=== PATIENT | male | born 1955 | race African-American/Black ===

== ENCOUNTER 2016-12-17 19:59 | Emergency (ER) | payer OTHER ==
[~2016-12-17] VITALS: Ht 180.3 cm; Wt 89.5 kg
[~2016-12-17 19:59] MED LIST: ASPI-664 PO; ATOR40TA68 PO; CARV25TA97 PO; FURO40TA4 PO; HYDR-3671 PO; LISI40TA9 PO; NAPR-260 PO; NIFE30TA66 PO; OMEP20CA16 PO; SPIR25TA PO; [UNRECOGNIZED DRUG - CODE] TRANSDERM
[2016-12-17 20:17] VITALS: Ht 180.3 cm; Wt 89.5 kg
[2016-12-17] MEDS ORDERED: ACETAMINOPHEN 500 MG TAB PO STA (22:49)
--- NOTE | 2016-12-18 00:30 | RADRPT ---
PROCEDURE: XR Hip. CLINICAL INDICATION: Status post fall. Left hip pain TECHNIQUE: AP and frog lateral views of the left hip were performed. COMPARISON: None. FINDINGS: There is normal mineralization and alignment. No fracture or osseous lesion is identified. The femor al head is normal in contour and the joint space preserved. The soft tissues are unremarkable. . RPTAT:HJJR IMPRESSION: Unremarkable left hip series. Physician Angelo Date Time Electronically viewed and signed by Cliff Friend Physician on 12/18/2016 00:29 JR/
--- NOTE | 2016-12-18 00:36 | ERD ---
ER Documentation Chief Complaint Date/Time DATE: 12/18/16 TIME: 00:35 Chief Complaint PT FELL OFF BED 2 WKS AGO, C/O LEFT HIP PAIN, LIMPING. UNABLE TO STAY AWAKE HPI This is a 61-year-old male who presents to the emergency room for evaluation of left-sided hip pain after falling out of bed 2 weeks ago. The patient states that he has been limping and came to the emergency room for evaluation. The patient denies any other trauma, denies any head injury and presents today for evaluation of pain in his left hip which she describes as achy pain worse with movement ROS All systems reviewed and are negative except as per history of present illness. Medications Home Meds Active Scripts Naproxen* (Naprosyn*) 500 Mg Tablet, 500 MG PO BID Y for PAIN AND/OR INFLAMMATION, #14 TAB Prov:OLIVIA JOEL NP 05/29/15 Furosemide (Lasix) 40 Mg Tab, 40 MG PO DAILY for 28 Days, TAB Prov:RAJEEV BARFIELD MD 03/13/15 Nifedipine* (Procardia XL*) 30 Mg Tabsr, 30 MG PO DAILY for 28 Days, BOTTLE Prov:RAJEEV BARFIELD MD 03/13/15 Hydralazine Hcl* (Hydralazine Hcl*) 25 Mg Tab, 75 MG PO Q6 for 30 Days, TAB Prov:RAJEEV BARFIELD MD 03/13/15 Clonidine Hcl (CATAPRES-TTS 3 PATCH) 1 Patch Patch, 1 PATCH TRANSDERM We@22 for 28 Days, PATCH Prov:RAJEEV BARFIELD MD 03/13/15 Carvedilol* (Coreg*) 25 Mg Tab, 25 MG PO BID for 28 Days, BOTTLE Prov:RAJEEV BARFIELD MD 03/13/15 Reported Medications Spironolactone* (Aldactone*) 25 Mg Tablet, 25 MG PO DAILY, TAB 07/14/14 Atorvastatin* (Atorvastatin*) 40 Mg Tablet, 40 MG PO HS, TAB 07/14/14 Omeprazole* (Omeprazole*) 20 Mg Capsule.dr, 20 MG PO DAILY, CAP 07/14/14 Lisinopril* (Lisinopril*) 40 Mg Tablet, 40 MG PO DAILY, TAB 07/14/14 Aspirin* (Aspirin* EC) 81 Mg Tablet.dr, 81 MG PO DAILY, TAB 06/04/14 Allergies Allergies: Coded Allergies: No Known Allergy (Unverified , 03/12/15) PMhx/Soc History of Surgery: No Anesthesia Reaction: No Hx Neurological Disorder: No Hx Respiratory Disorders: Yes (CHF) Hx Cardiac Disorders: No (CHF, HTN) Hx Psychiatric Problems: No Hx Miscellaneous Medical Probl: Yes (NICOTINE ABUSE, DYSLIPIDEMIA) Hx Alcohol Use: No Hx Substance Use: No Hx Tobacco Use: Yes Smoking Status: Current every day smoker Physical Exam Vitals Vital Signs Date Time Temp Pulse Resp B/P Pulse Ox O2 Delivery O2 Flow Rate FiO2 12/17/16 20:17 98.5 79 18 191/93 97 Physical Exam INITIAL VITAL SIGNS: Reviewed by me GENERAL: The patient is well developed and appropriate for usual state of health in no apparent distress HEENT: Pupils equal, round, and reactive to light. EOMI. There is no scleral icterus. NECK: C-spine is soft and supple, there is no meningismus. There is no cervical lymphadenopathy. LUNGS: Clear to auscultation bilaterally. There are no rales, wheezes or rhonchi. HEART: Regular rate and rhythm, no murmurs, clicks, rubs or gallops. ABDOMEN: Soft, non-tender, non-distended. There are bowel sounds in all four quadrants. No rebound or guarding. EXTREMITIES: There is no peripheral cyanosis or edema. No focal swelling or erythema. NEUROLOGICAL: The patient moves all four extremities with 5/5 strength. Cranial nerves II - XII are intact. Normal gait. Alert and oriented SKIN: There is no apparent rash or petechiae. HEME/LYMPHATIC: There is no evidence of excessive bruising or lymphedema. PSYCHIATRIC: The patient does not appear anxious or depressed. Results 24 hrs Current Medications Medications (Trade) Dose Ordered Sig/Gisel Route PRN Reason Start Time Stop Time Status Last Admin Dose Admin Acetaminophen (Tylenol Tab) 1,000 mg ONCE STAT PO 12/17/16 22:49 12/17/16 22:51 DC 12/17/16 22:55 Procedures/MDM X-ray Hip 2V Interpreted by me: Bones: [No fracture] Joints: [No dislocation] Foreign body: [None] This 61-year-old male presents to the ER for evaluation of left-sided hip pain. When I evaluated him the patient was not externally rotated, he was not shortened. The patient did have an x-ray which does not reveal any fracture. The patient was given Tylenol in the emergency room and will be discharged home at this time with a prescription for Tylenol and hip contusion instructions. Smoking Cessation Therapy: Pt. was lectured for greater than 3 minutes on the health risks of continued smoking and the benefits of cessation. Departure Diagnosis: Primary Impression: Contusion of left hip Additional Impressions: Tobacco abuse Tobacco abuse counseling Condition: Stable MELISSA ROSENBERG DO Dec 18, 2016 00:36
[2016-12-18] MEDS ORDERED: ACET325T33 PO (00:37)
[2016-12-18 01:06] VITALS: BP 168/98; PULSE 82; RESP 18; TEMP 98.2
== END 2016-12-18 01:07 | disposition home or self-care (01) ==
LOC: E/R 19:59
DX: S70.02XA Contusion of left hip, initial encounter (principal); F17.210 Nicotine dependence, cigarettes, uncomplicated; I10 Essential (primary) hypertension; I50.9 Heart failure, unspecified; W06.XXXA Fall from bed, initial encounter; Y92.9 Unspecified place or not applicable; Z71.6 Tobacco abuse counseling; Z79.82 Long term (current) use of aspirin
CPT/HCPCS: 73510; Z7502; Z7610

== ENCOUNTER 2017-01-14 15:09 | Inpatient (IN) | payer OTHER ==
[~2017-01-14] VITALS: Ht 174 cm; Wt 92.7 kg
[~2017-01-14 15:09] MED LIST changes: +ACET325T33 PO
[2017-01-14] MEDS ORDERED: IPRATROPIUM (NEB) 0.5 MG/2.5 ML AMP NEB STA (15:21)
[2017-01-14] MEDS ORDERED: ALBUTEROL 0.083% (NEB) 2.5 MG/3 ML AMP NEB STA (15:21)
[2017-01-14] MEDS ORDERED: METHYLPREDNISOLONE 125 MG INJ IV STA (15:21)
[2017-01-14 15:44] LABS: BASOPHILS % 0.1 % (0.0-2.0); EOSINOPHILS # 0.4 10^3/ul (0.0-0.5); EOSINOPHILS % 5.1 % (0.0-7.0); HEMATOCRIT 45.1 % (42.0-52.0); HEMOGLOBIN 14.2 g/dl (14.0-18.0); LYMPHOCYTES # 1.2 10^3/ul (0.8-2.9); LYMPHOCYTES % 17.3 % (15.0-51.0); MEAN CORPUSCULAR HGB CONC 31.5 g/dl (32.0-37.0); MEAN PLATELET VOLUME 10.6 fl (7.4-10.4); MONOCYTE # 0.8 10^3/ul (0.3-0.9); MONOCYTES % 11.7 % (0.0-11.0); NEUTROPHIL # 4.5 10^3/ul (1.6-7.5); NEUTROPHILS % 65.5 % (39.0-77.0); PLATELET COUNT 239 10^3/UL (140-415); RED CELL DISTRIBUTION WIDTH 14.1 % (11.5-14.5); WHITE BLOOD COUNT 6.9 10^3/ul (4.8-10.8)
[2017-01-14 15:49] LABS: AADO2 Arterial 92.9 mmHg (7.0-24.0); Allen Test ACCEPTAB; Arterial Base Excess 0 mmol/L (-3.0-3); Arterial COHb 4.5 % (0.0-3.0); Arterial Fraction of Oxyhgb 90.6 % (93.0-99.0); Arterial HCO3 26.8 mmol/L (22.0-26.0); Arterial MetHb 0.2 % (0.0-1.5); MODE NASAL CANNULA
[2017-01-14 15:51] LABS: ADD SCAN DIFF NO
[2017-01-14 16:03] LABS: CALCIUM 8.8 mg/dl (8.4-10.2); CREATININE 1.29 mg/dl (0.61-1.24); POTASSIUM 3.9 mmol/L (3.5-5.1)
[2017-01-14 16:14] LABS: TROPONIN-I 0.099 ng/ml (0.00-0.12)
--- NOTE | 2017-01-14 17:02 | RADRPT ---
PROCEDURE: XR Chest. CLINICAL INDICATION: Respiratory distress TECHNIQUE: AP view of the chest was performed. COMPARISON: March 08, 2015 FINDINGS: Mild cardiomegaly and vascular congestion are again noted. No signs of pleural fluid or pneumothorax are seen. The osseous structures and soft tissues are unremarkable. IMPRESSION: Mild cardiomegaly and vascular congestion. Similar to what was seen March 08, 2015. Findings sugg est mild fluid overload. RPTAT: QQ .Beronica Barrett MD, MD Date Time Electronically viewed and signed by .Beronica Barrett MD, MD on 01/14/2017 17:02 .F/
[2017-01-14] MEDS ORDERED: FUROSEMIDE 40 MG INJ IV ONE (17:30)
--- NOTE | 2017-01-14 18:04 | ERA ---
ER Documentation Chief Complaint Date/Time DATE: 01/14/17 TIME: 18:01 Chief Complaint BIB EMS FOR C/O SOB HPI Patient is a 61-year-old male with coronary disease and CHF who presents with shortness of breath. He was brought in by ambulance. Please note the history and physical exam is limited as the patient continues to fall asleep on trying to interview him. The girlfriend says that his sleeping is normal for him with shortness of breath is not. Upon review of old medical records this is the patient's ninth visit to the ER since 2012. I cannot obtain a history otherwise. ROS All systems reviewed and are negative except as per history of present illness. Medications Home Meds Active Scripts Carvedilol* (Coreg*) 25 Mg Tab, 25 MG PO BID for 28 Days, BOTTLE Prov:RAJEEV BARFIELD MD 03/13/15 Reported Medications Atorvastatin* (Atorvastatin*) 40 Mg Tablet, 40 MG PO HS, TAB 07/14/14 Lisinopril* (Lisinopril*) 40 Mg Tablet, 40 MG PO DAILY, TAB 07/14/14 Discontinued Reported Medications Spironolactone* (Aldactone*) 25 Mg Tablet, 25 MG PO DAILY, TAB 07/14/14 Omeprazole* (Omeprazole*) 20 Mg Capsule.dr, 20 MG PO DAILY, CAP 07/14/14 Aspirin* (Aspirin* EC) 81 Mg Tablet.dr, 81 MG PO DAILY, TAB 06/04/14 Discontinued Scripts Acetaminophen* (Tylenol*) 325 Mg Tablet, 1 TAB PO Q6 Y for PAIN AND OR ELEVATED TEMP, #20 TAB Prov:MELISSA ROSENBERG DO 12/18/16 Naproxen* (Naprosyn*) 500 Mg Tablet, 500 MG PO BID Y for PAIN AND/OR INFLAMMATION, #14 TAB Prov:OLIVIA JOEL NP 05/29/15 Furosemide (Lasix) 40 Mg Tab, 40 MG PO DAILY for 28 Days, TAB Prov:RAJEEV BARFIELD MD 03/13/15 Nifedipine* (Procardia XL*) 30 Mg Tabsr, 30 MG PO DAILY for 28 Days, BOTTLE Prov:RAJEEV BARFIELD MD 03/13/15 Hydralazine Hcl* (Hydralazine Hcl*) 25 Mg Tab, 75 MG PO Q6 for 30 Days, TAB Prov:RAJEEV BARFIELD MD 03/13/15 Clonidine Hcl (CATAPRES-TTS 3 PATCH) 1 Patch Patch, 1 PATCH TRANSDERM We@22 for 28 Days, PATCH Prov:RAJEEV BARFIELD MD 03/13/15 Allergies Allergies: Coded Allergies: No Known Allergy (Unverified , 01/14/17) PMhx/Soc History of Surgery: No Anesthesia Reaction: No Hx Neurological Disorder: No Hx Respiratory Disorders: Yes (CHF) Hx Cardiac Disorders: No (CHF, HTN) Hx Psychiatric Problems: No Hx Miscellaneous Medical Probl: Yes (NICOTINE ABUSE, DYSLIPIDEMIA) Hx Alcohol Use: No Hx Substance Use: No Hx Tobacco Use: Yes Smoking Status: Current every day smoker FmHx Unable to obtain Physical Exam Vitals Vital Signs Date Time Temp Pulse Resp B/P Pulse Ox O2 Delivery O2 Flow Rate FiO2 01/14/17 16:05 65 98 28 01/14/17 16:04 61 15 151/108 98 BIPAP 01/14/17 15:23 98.7 67 20 175/103 96 01/14/17 15:23 Nasal Cannula 2 01/14/17 15:18 98.0 70 16 175/100 91 Physical Exam Const: Sleeping Head: Atraumatic Eyes: Normal Conjunctiva ENT: Normal External Ears, Nose and Mouth. Neck: Full range of motion..~ No meningismus. Resp: Decreased breath sounds bilaterally Cardio: Regular rate and rhythm, no murmurs Abd: Soft, non tender, non distended. Normal bowel sounds Skin: No petechiae or rashes Back: No midline or flank tenderness Ext: Bilateral lower extremity pitting edema Neur: Patient awakens to painful stimuli and answers 1 or 2 questions and then falls asleep Result Diagram: 01/14/17 1530 01/14/17 1530 Results 24 hrs Laboratory Tests Test 01/14/17 15:21 01/14/17 15:30 Blood Gas Specimen Source Blood arterial Arterial Blood Date Drawn 01/14/2017 3:40:14 PM Arterial Blood pH (Temp corrected) 7.333 Arterial Blood pCO2 (Temp correct) 51.6mmhg Arterial Blood pO2 (Temp corrected) 82.2mmHG Arterial Blood HCO3 26.8mmol/L Arterial Blood Base Excess 0mmol/L Arterial Blood Oxygen Saturation 95.1mmHG Jg Test ACCEPTAB Arterial Blood Gas Puncture Site Left Radial Arterial Blood Carboxyhemoglobin 4.5% Arterial Blood Methemoglobin 0.2% Blood Gas A-a O2 Differential 92.9mmHg Oxyhemoglobin Percent 90.6% Total Hemoglobin 15.0g/dl Blood Gas Temperature 37.0C Blood Gas Modality NASAL CANNULA FiO2 33.0% Blood Gas Notified Whom Jacinto Blood Gas Notified Time 01/14/2017 3:48:59 PM White Blood Count 6.910^3/ul Red Blood Count 4.9010^6/ul Hemoglobin 14.2g/dl Hematocrit 45.1% Mean Corpuscular Volume 92.0fl Mean Corpuscular Hemoglobin 29.0pg Mean Corpuscular Hemoglobin Concent 31.5g/dl Red Cell Distribution Width 14.1% Platelet Count 45591^3/UL Mean Platelet Volume 10.6fl Neutrophils % 65.5% Lymphocytes % 17.3% Monocytes % 11.7% Eosinophils % 5.1% Basophils % 0.1% Nucleated Red Blood Cells % 0.0/100WBC Neutrophils # 4.510^3/ul Lymphocytes # 1.210^3/ul Monocytes # 0.810^3/ul Eosinophils # 0.410^3/ul Basophils # 0.010^3/ul Nucleated Red Blood Cells # 0.010^3/ul Sodium Level 142mmol/L Potassium Level 3.9mmol/L Chloride Level 101mmol/L Carbon Dioxide Level 27mmol/L Anion Gap 18 Blood Urea Nitrogen 12mg/dl Creatinine 1.29mg/dl Glucose Level 118mg/dl Calcium Level 8.8mg/dl Troponin I 0.099ng/ml Current Medications Medications (Trade) Dose Ordered Sig/Gisel Route PRN Reason Start Time Stop Time Status Last Admin Dose Admin Albuterol (Proventil 0.083% (Neb)) 5 mg ONCE STAT NEB 01/14/17 15:21 01/14/17 15:23 DC 01/14/17 17:30 Ipratropium [place] (Atrovent 0.02% (Neb)) 0.5 mg ONCE STAT NEB 01/14/17 15:21 01/14/17 15:23 DC 01/14/17 17:30 Methylprednisolone Sodium Succinate (Solu-Medrol) 125 mg ONCE STAT IV 01/14/17 15:21 01/14/17 15:23 DC 01/14/17 15:42 Furosemide (Lasix) 40 mg ONCE ONCE IV 01/14/17 17:30 01/14/17 17:31 DC 01/14/17 17:27 Procedures/MDM EKG #1 read by me: Rate/Rhythm: Left bundle branch block with a normal rate Intervals: Normal Impression: Left bundle branch block with negative Sgarbossa criteria EKG #2 read by me: Rate/Rhythm: Left bundle branch block with a normal rate Intervals: Normal Impression: Left bundle branch block with negative Sgarbossa criteria Chest x-ray shows pulmonary edema per radiology. CT scan of the brain is pending at this time. Patient is a 61-year-old male with coronary disease and CHF as well as narcolepsy who presents with shortness of breath. The patient was brought in by ambulance. The patient had an ABG which showed a PCO2 which was elevated at 50. I initially placed the patient on BiPAP therapy because I was concerned about CO2 narcosis but at this point the CO2 does not appear to be that high. His chest x-ray does show pulmonary edema and the positive pressure from the BiPAP will help. I believe patient has an acute congestive heart failure exacerbation as well as shortness of breath. The patient has altered mental status and aspirin, Tylenol, and alcohol levels are pending as well as a urine drug screen. The patient will be admitted to a telemetry bed under the care of Dr. March from the panel team. I doubt pneumothorax, pneumonia, pulmonary embolism, or aortic dissection. Critical Care: Time: 35 minutes excluding all billable procedures. Treatments/Evaluations: Close monitoring and treatment of unstable vital signs, cardiorespiratory, and neurologic status, while maintaining tight balance of fluid, respiratory, and cardiac interventions. Departure Diagnosis: Primary Impression: Acute exacerbation of CHF (congestive heart failure) Qualified Code: I50.9 - Acute on chronic congestive heart failure, unspecified congestive heart failure type Additional Impressions: Shortness of breath Altered mental status Qualified Code: R41.82 - Altered mental status, unspecified altered mental status type Condition: GIOVANA Leonard MD Jan 14, 2017 18:04
--- NOTE | 2017-01-14 18:10 | RADRPT ---
PROCEDURE: CT Brain without contrast. CLINICAL INDICATION: Altered Mental Status TECHNIQUE: A CT of the brain was performed on a [employer] 64-slice CT scanner utilizing axial imaging from the skull base through the vertex without IV contrast. Multiplanar reformatted images were made. Images were reviewed on a PACS workstation. The CTDIvol is 44.6 mGy and the DLP is 720 mGycm. COMPARISON: None FINDINGS: There is no intracranial hemorrhage, mass effect, or midline shift. No extra-axial fluid collection is seen. The ventricles and sulci are normal in size and configuration. Periventricular white frasnisco er hypodensities are nonspecific but likely reflect chronic microvascular ischemic change. Schroeder-whit e matter differentiation is preserved. The visualized paranasal sinuses and osseous structures are g rossly unremarkable. IMPRESSION: 1. No evidence of acute intracranial pathology. 2. Periventricular white matter hypodensities are nonspecific but likely reflect chronic microvascu lar ischemic change. Nilay Duke Physician Date Time Electronically viewed and signed by Nilay Duke Physician on 01/14/2017 18:10 ML/
[2017-01-14] MEDS ORDERED: hydrALAzine 20 MG INJ IV ONE ×2 (18:30→21:30)
[2017-01-14 18:46] LABS: BARBITURATES NEGATIVE (NEGATIVE); BENZODIAZEPINES NEGATIVE (NEGATIVE); CANNABINOIDS NEGATIVE (NEGATIVE); OPIATES NEGATIVE (NEGATIVE)
[2017-01-14 18:47] LABS: COCAINE POSITIVE (NEGATIVE)
--- NOTE | 2017-01-14 18:47 | HP ---
Date/Time of Note Date/Time of Note DATE: 01/14/17 TIME: 18:45 Assessment/Plan VTE Prophylaxis VTE Prophylaxis Intervention: SCD's Assessment/Plan Assessment/Plan 61 yo M with pmhx chronic systolic HF, HTN, obesity, RAZIA, HL presents with SOB and increased somnolence. D/dx includes acute on chronic HF v ACS v other. UDS + for cocaine. PLAN check BNP, check echo check d dimer. If +, consider CTA v VQ scan gentle dieresis. Cr at baseline ACS r/o cont home meds, may need to add additional antihypertensive sp 1 dose of lasix in the ED. Await BNP and UOP response. DVT prophx HPI/ROS Admit Date/Time Admit Date/Time Hx of Present Illness chief complaint: SOB HPI 61 yo M with pmhx RAZIA on CPAP, obesity, HTN, HL, chronic systolic HF presents with 1 day of SOB. Significant other reports pt was in [facility] until today when he' s been SOB. No chest pain. Noted to be quite somnolent in the ED but arousable. Pt started on BiPap PMH/Family/Social Past Medical History chronic heart failure with reduced EF obesity CKD with baseline CR 1.3 RAZIA on CPAP HTN HL Social History lives with significant other discharge summary from 2 yrs ago mentions h/o cocaine abuse Smoking Status: Current every day smoker Exam/Review of Systems Vital Signs Vitals Vital Signs Date Time Temp Pulse Resp B/P Pulse Ox O2 Delivery O2 Flow Rate FiO2 01/14/17 18:24 59 22 196/110 100 BIPAP 01/14/17 17:15 28 01/14/17 15:23 98.7 01/14/17 15:23 2 Exam Exam laying in bed, wearing bipap MMM sleepy but arousable minimal LE edema rrr no mrg lungs clear abd soft no rashes labs reviewed. Cr at baseline. CXR with minimal congestion. ABG largely unremarkable Labs Result Diagram: 01/14/17 1530 01/14/17 1530 Procedures Procedures UDS + for cocaine CHRIS MCMAHAN MD Jan 14, 2017 18:47
[2017-01-14] MEDS ORDERED: NACL 0.9% 3 ML SYG IV SCH (19:00)
[2017-01-14] MEDS ORDERED: HYDROCODONE/APAP (5/325) TAB PO PRN (19:00)
[2017-01-14] MEDS ORDERED: ACETAMINOPHEN 325 MG TAB PO PRN ×2 (19:00→19:30)
[2017-01-14] MEDS ORDERED: ONDANSETRON 4 MG INJ IV PRN (19:30)
[2017-01-14 19:32] LABS: ACETAMINOPHEN < 10.0 ug/ml (10.0-30.0); SALICYLATE < 1.0 mg/dl (5.0-30.0)
[2017-01-14 19:35] LABS: D-DIMER 657.19 ng/ml (<460)
[2017-01-14 19:51] LABS: ETHANOL < 10.0 mg/dl
[2017-01-14 21:58] VITALS: PULSE 95
[2017-01-14 22:00] VITALS: BP 176/91; PULSE 90; RESP 18
[2017-01-14 22:22] LABS: TROPONIN-I 0.088 ng/ml (0.00-0.12)
[2017-01-14] MEDS: ATORVASTATIN 40 MG TAB PO SCH (22:22)
[2017-01-14 22:26] LABS: CK-MB 3.28 ng/ml (0.0-2.4)
[2017-01-14 22:33] VITALS: Ht 174 cm; Wt 92.7 kg
[2017-01-14] MEDS: HEPARIN 5,000 UNIT/0.5 ML VIAL SC SCH (22:51)
[2017-01-14 23:56] VITALS: BP 186/88; RESP 20
[2017-01-15] VITALS (16 sets, daily range): BP systolic 141–187; BP diastolic 81–104; PULSE 57–90; RESP 18–21
[2017-01-15 02:27] LABS: CK-MB 3.16 ng/ml (0.0-2.4); TROPONIN-I 0.087 ng/ml (0.00-0.12)
[2017-01-15] MEDS: HEPARIN 5,000 UNIT/0.5 ML VIAL SC SCH ×2 (06:24→14:49)
[2017-01-15 07:10] LABS: BASOPHILS % 0.1 % (0.0-2.0); EOSINOPHILS % 0.1 % (0.0-7.0); HEMATOCRIT 45.2 % (42.0-52.0); HEMOGLOBIN 14.5 g/dl (14.0-18.0); LYMPHOCYTES # 0.8 10^3/ul (0.8-2.9); LYMPHOCYTES % 9.2 % (15.0-51.0); MEAN CORPUSCULAR HEMOGLOBIN 29.2 pg (29.0-33.0); MEAN CORPUSCULAR HGB CONC 32.1 g/dl (32.0-37.0); MEAN CORPUSCULAR VOLUME 91.1 fl (82.0-101.0); MEAN PLATELET VOLUME 10.9 fl (7.4-10.4); MONOCYTE # 0.8 10^3/ul (0.3-0.9); MONOCYTES % 9.2 % (0.0-11.0); NEUTROPHIL # 7.4 10^3/ul (1.6-7.5); NEUTROPHILS % 81.1 % (39.0-77.0); PLATELET COUNT 241 10^3/UL (140-415); RED BLOOD COUNT 4.96 10^6/ul (4.70-6.10); RED CELL DISTRIBUTION WIDTH 14.1 % (11.5-14.5); WHITE BLOOD COUNT 9.1 10^3/ul (4.8-10.8)
[2017-01-15 07:18] LABS: ADD SCAN DIFF NO
[2017-01-15 07:35] LABS: ALBUMIN 3.6 g/dl (3.3-4.9); ALBUMIN/GLOBULIN RATIO 1.24; BILIRUBIN,INDIRECT 0.4 mg/dl (0-1.1); BILIRUBIN,TOTAL 0.4 mg/dl (0.2-1.3); CALCIUM 9.4 mg/dl (8.4-10.2); CHOL/HDL RATIO 2.7 RATIO; CREATININE 1.39 mg/dl (0.61-1.24); MAGNESIUM 1.8 mg/dl (1.7-2.5); PHOSPHORUS 3.4 mg/dl (2.5-4.9); POTASSIUM 4.5 mmol/L (3.5-5.1); TOTAL PROTEIN 6.5 g/dl (6.1-8.1)
--- NOTE | 2017-01-15 09:19 | RADRPT ---
PROCEDURE: US Lower extremity Venous. CLINICAL INDICATION: elevated dimer TECHNIQUE: Multiple sonographic images of the bilateral lower extremity deep venous system was obt ained utilizing grayscale, color-flow, compressive sonography and doppler imaging with augmentation. The images were reviewed on a PACS workstation. COMPARISON: None. FINDINGS: There is normal compressibility and flow within the bilateral common femoral, deep femoral, superfic ial femoral and popliteal veins. The deep veins the calf were incompletely visualized. IMPRESSION: No sonographic evidence for deep venous thrombosis in the bilateral lower extremities. Physician Tenzin Date Time Electronically viewed and signed by Physician Tenzin on 01/15/2017 09:18 ML/
[2017-01-15 09:41] LABS: CK-MB 2.99 ng/ml (0.0-2.4)
[2017-01-15 09:43] LABS: TROPONIN-I 0.13 ng/ml (0.00-0.12)
[2017-01-15] MEDS: FUROSEMIDE 40 MG TAB PO SCH (10:26)
[2017-01-15] MEDS: LISINOPRIL 20 MG TAB PO SCH (10:26)
--- NOTE | 2017-01-15 13:02 | PN ---
Date/Time of Note Date/Time of Note DATE: 01/15/17 TIME: 13:01 Assessment/Plan VTE Prophylaxis VTE Prophylaxis Intervention: SCD's Lines/Catheters IV [facility]from [facility] [place] [facility] Urinary Cath still in place: No Assessment/Plan Assessment/Plan 61 yo M with pmhx chronic systolic HF, HTN, obesity, RAZIA, HL presents with SOB and increased somnolence. D/dx includes acute on chronic HF v ACS v other. UDS + for cocaine. troponin now mildly positive. D dimer yesterday +. PLAN recheck troponin. If higher, start heparin drip and call cardiology suspect NSTEMI from demand from cocaine use check echo for + dimer, check VQ scan gentle dieresis. Cr at baseline cont home meds, may need to add additional antihypertensive sp 1 dose of lasix in the ED. Await BNP and UOP response. DVT prophx Subjective 24 Hr Interval Summary Free Text/Dictation pt much more awake this AM. States his breathing is almost back to baseline. Regarding his cocaine use, pt states he "quit all that stuff." Last use of cocaine was . Exam/Review of Systems Vital Signs Vitals Vital Signs Date Time Temp Pulse Resp B/P Pulse Ox O2 Delivery O2 Flow Rate FiO2 01/15/17 12:46 74 01/15/17 11:16 2.0 01/15/17 07:13 98.3 19 178/92 93 01/15/17 05:30 Nasal Cannula 01/14/17 21:30 25 Intake and Output 01/14/17 01/14/17 01/15/17 15:00 23:00 07:00 Intake Total 700 ml Output Total 650 ml Balance 50 ml Exam nad, sitting at side of bed no mrg lungs clear abd soft no le edema elevated dimer noted slightly elevated troponin noted LE dopplers neg for DVT Results Result Diagram: 01/15/17 0520 01/15/17 0520 Results 24 hrs Laboratory Tests Test 01/14/17 15:21 01/14/17 15:30 01/14/17 18:00 01/14/17 21:22 Blood Gas Specimen Source Blood arterial Arterial Blood Date Drawn 01/14/2017 3:40:14 PM Arterial Blood pH (Temp corrected) 7.333 L Arterial Blood pCO2 (Temp correct) 51.6 H Arterial Blood pO2 (Temp corrected) 82.2 Arterial Blood HCO3 26.8 H Arterial Blood Base Excess 0 Arterial Blood Oxygen Saturation 95.1 Jg Test ACCEPTAB Arterial Blood Gas Puncture Site Left Radial Arterial Blood Carboxyhemoglobin 4.5 H Arterial Blood Methemoglobin 0.2 Blood Gas A-a O2 Differential 92.9 H Oxyhemoglobin Percent 90.6 L Total Hemoglobin 15.0 Blood Gas Temperature 37.0 Blood Gas Modality NASAL CANNULA FiO2 33.0 Blood Gas Notified Whom M.D. Blood Gas Notified Time 01/14/2017 3:48:59 PM White Blood Count 6.9 # Red Blood Count 4.90 Hemoglobin 14.2 # Hematocrit 45.1 # Mean Corpuscular Volume 92.0 Mean Corpuscular Hemoglobin 29.0 Mean Corpuscular Hemoglobin Concent 31.5 L Red Cell Distribution Width 14.1 # Platelet Count 239 Mean Platelet Volume 10.6 H Neutrophils % 65.5 Lymphocytes % 17.3 Monocytes % 11.7 H Eosinophils % 5.1 Basophils % 0.1 Nucleated Red Blood Cells % 0.0 Neutrophils # 4.5 Lymphocytes # 1.2 Monocytes # 0.8 Eosinophils # 0.4 Basophils # 0.0 Nucleated Red Blood Cells # 0.0 D-Dimer 657.19 H D-Dimer Comment Sodium Level 142 Potassium Level 3.9 Chloride Level 101 Carbon Dioxide Level 27 Anion Gap 18 H Blood Urea Nitrogen 12 Creatinine 1.29 H Glucose Level 118 Calcium Level 8.8 Troponin I 0.099 0.088 B-Type Natriuretic Peptide 1790 H Salicylates Level < 1.0 L Acetaminophen Level < 10.0 L Ethyl Alcohol Level < 10.0 Urine Opiates Screen NEGATIVE Urine Barbiturates NEGATIVE Urine Amphetamines Screen NEGATIVE Urine Benzodiazepines Screen NEGATIVE Urine Cocaine Screen POSITIVE Urine Cannabinoids NEGATIVE Creatine Kinase 115 Creatine Kinase Index 2.9 Creatinine Kinase MB (Mass) 3.28 H Test 01/15/17 01:41 01/15/17 05:20 01/15/17 08:40 Creatine Kinase 117 117 Creatine Kinase Index 2.7 2.6 Creatinine Kinase MB (Mass) 3.16 H 2.99 H Troponin I 0.087 0.130 *H White Blood Count 9.1 # Red Blood Count 4.96 Hemoglobin 14.5 Hematocrit 45.2 Mean Corpuscular Volume 91.1 Mean Corpuscular Hemoglobin 29.2 Mean Corpuscular Hemoglobin Concent 32.1 Red Cell Distribution Width 14.1 Platelet Count 241 Mean Platelet Volume 10.9 H Neutrophils % 81.1 H Lymphocytes % 9.2 L Monocytes % 9.2 Eosinophils % 0.1 Basophils % 0.1 Nucleated Red Blood Cells % 0.0 Neutrophils # 7.4 Lymphocytes # 0.8 Monocytes # 0.8 Eosinophils # 0.0 Basophils # 0.0 Nucleated Red Blood Cells # 0.0 Sodium Level 142 Potassium Level 4.5 Chloride Level 100 Carbon Dioxide Level 28 Anion Gap 19 H Blood Urea Nitrogen 18 Creatinine 1.39 H Glucose Level 104 Hemoglobin A1c 6.5 H Calcium Level 9.4 Phosphorus Level 3.4 Magnesium Level 1.8 Total Bilirubin 0.4 Direct Bilirubin 0.00 Indirect Bilirubin 0.4 Aspartate Amino Transf (AST/SGOT) 21 Alanine Aminotransferase (ALT/SGPT) 20 Alkaline Phosphatase 101 Total Protein 6.5 Albumin 3.6 Globulin 2.90 Albumin/Globulin Ratio 1.24 Triglycerides Level 104 Cholesterol Level 136 LDL Cholesterol, Calculated 65 HDL Cholesterol 50 Cholesterol/HDL Ratio 2.7 Medications Medications Current Medications Atorvastatin Calcium (Lipitor) 40 mg HS PO Last administered on 01/14/17 22:22 ; Admin Dose 40 MG; Start 01/14/17 at 21:00 Carvedilol (Coreg) 25 mg BID PO Last administered on 01/15/17 10:26; Admin Dose 25 MG; Start 01/14/17 at 21:00 Lisinopril (Zestril) 40 mg DAILY PO Last administered on 01/15/17 10:26; Admin Dose 40 MG; Start 01/15/17 at 09:00 Acetaminophen (Tylenol Tab) 650 mg Q6H PRN PO PAIN LEVEL 1-3 OR FEVER; Start at 19:00 Acetaminophen/ Hydrocodone Bitart ([place] (5/325)) 1 tab Q6H PRN PO MODERATE PAIN LEVEL 4-6 Last administered on 01/15/17 00:52; Admin Dose 1 TAB; Start 01/14 at 19:00 Heparin Sodium (Porcine) (Heparin (5000 Units/0.5 ml)) 5,000 unit Q8 SC Last administered on 01/15/17 06:24; Admin Dose 5,000 UNIT; Start 01/14/17 at 22:00 Furosemide (Lasix) 40 mg DAILY PO Last administered on 7/2/17at 10:26; Admin Dose 40 MG; Start 01/15/17 at 10:00 CHRIS MCMAHAN MD Jan 15, 2017 13:02
--- NOTE | 2017-01-15 13:16 | RADRPT ---
PROCEDURE: Nuclear medicine VQ scan CLINICAL INDICATION: Chest pain. Shortness of breath. TECHNIQUE: 1.0 mCi of technetium-99m DTPA was utilized for the ventilation study. 4.0 mCi of tech netium 99m MAA was utilized for the perfusion study. Planar imaging which performed in 8 planes. I mages were reviewed on the high resolution PACS workstation. COMPARISON: Chest x-ray 01/14/2017 FINDINGS: There is normal and homogeneous uptake throughout the lungs on the ventilation and perfusion scan. No matched or mismatched defects are identified. There is no evidence for pulmonary embolism. IMPRESSION: 1. Low probability VQ scan. RPTAT: HMJB .Leland Zamudio MD, Date Time Electronically viewed and signed by .Leland Zamudio MD, MD on 01/15/2017 13:15 .B/
[2017-01-15 16:51] LABS: CK-MB 3.48 ng/ml (0.0-2.4); TROPONIN-I 0.158 ng/ml (0.00-0.12)
[2017-01-15] MEDS ORDERED: HEPARIN 25000 UNITS/250 ML 250 ML IV SCH (18:00)
[2017-01-15] MEDS ORDERED: HEPARIN 1000 UNITS/ML 10 ML INJ IV ONE (18:00)
[2017-01-15] MEDS ORDERED: HEPARIN 1000 UNITS/ML 10 ML INJ IV PRN (18:00)
[2017-01-15] MEDS: HEPARIN 25000 UNITS/250 ML 250 ML IV SCH (18:44)
[2017-01-15 18:46] LABS: BASOPHILS % 0.1 % (0.0-2.0); EOSINOPHILS # 0.2 10^3/ul (0.0-0.5); EOSINOPHILS % 1.8 % (0.0-7.0); HEMOGLOBIN 14.1 g/dl (14.0-18.0); LYMPHOCYTES # 1.8 10^3/ul (0.8-2.9); MEAN CORPUSCULAR HEMOGLOBIN 29.7 pg (29.0-33.0); MEAN CORPUSCULAR HGB CONC 32.8 g/dl (32.0-37.0); MEAN CORPUSCULAR VOLUME 90.7 fl (82.0-101.0); MEAN PLATELET VOLUME 10.8 fl (7.4-10.4); MONOCYTES % 9.3 % (0.0-11.0); NEUTROPHIL # 7.7 10^3/ul (1.6-7.5); NEUTROPHILS % 71.3 % (39.0-77.0); PLATELET COUNT 219 10^3/UL (140-415); RED BLOOD COUNT 4.74 10^6/ul (4.70-6.10); RED CELL DISTRIBUTION WIDTH 13.9 % (11.5-14.5); WHITE BLOOD COUNT 10.8 10^3/ul (4.8-10.8)
[2017-01-15 18:51] LABS: ADD SCAN DIFF NO
[2017-01-15 19:01] LABS: INR 0.94; PARTIAL THROMBOPLASTIN TIME 29.2 Sec (25.0-35.0); PROTIME 12.6 Sec (12.2-14.2)
[2017-01-15 19:21] LABS: CK-MB 3.55 ng/ml (0.0-2.4); TROPONIN-I 0.169 ng/ml (0.00-0.12)
[2017-01-15] MEDS: ATORVASTATIN 40 MG TAB PO SCH (20:59)
[2017-01-15] MEDS: hydrALAzine 20 MG INJ IV PRN (20:59)
[2017-01-16] VITALS (15 sets, daily range): BP systolic 141–197; BP diastolic 54–99; PULSE 60–78; RESP 18–22
[2017-01-16 01:32] LABS: INR 0.93; PROTIME 12.5 Sec (12.2-14.2)
[2017-01-16 01:33] LABS: PARTIAL THROMBOPLASTIN TIME 50.3 Sec (25.0-35.0)
[2017-01-16 02:09] LABS: CK-MB 3.33 ng/ml (0.0-2.4); TROPONIN-I 0.16 ng/ml (0.00-0.12)
[2017-01-16] MEDS: HEPARIN 25000 UNITS/250 ML 250 ML IV SCH (03:17)
[2017-01-16] MEDS: hydrALAzine 20 MG INJ IV PRN (03:42)
[2017-01-16 07:06] LABS: CK-MB 3.04 ng/ml (0.0-2.4); TROPONIN-I 0.18 ng/ml (0.00-0.12)
[2017-01-16] MEDS: FUROSEMIDE 40 MG TAB PO SCH (09:58)
[2017-01-16] MEDS: LISINOPRIL 20 MG TAB PO SCH (09:59)
--- NOTE | 2017-01-16 11:22 | PN ---
Date/Time of Note Date/Time of Note DATE: 01/16/17 TIME: 11:21 Assessment/Plan VTE Prophylaxis VTE Prophylaxis Intervention: SCD's Lines/Catheters IV C[facility]ter Type (from [facility]): Peripheral IV Urinary Cath still in place: No Assessment/Plan Assessment/Plan 61 yo M with pmhx chronic systolic HF, HTN, obesity, RAZIA, HL presents with SOB and increased somnolence. D/dx includes acute on chronic HF v ACS v other. UDS + for cocaine. troponin now mildly positive. D dimer+ PLAN #NSTEMI: heparin drip started, cardiology to see today suspect demand from cocaine use TTE complete, awaiting read cont statin, BP control--->adding CCB #DM2 based on a1c 6.5: RD eval #elevated dimer: VQ scan today dispo pending cardiology eval Subjective 24 Hr Interval Summary Free Text/Dictation Pt denies any further chest pain. Wants to know when he can go home. Exam/Review of Systems Vital Signs Vitals Vital Signs Date Time Temp Pulse Resp B/P Pulse Ox O2 Delivery O2 Flow Rate FiO2 01/16/17 11:14 97.4 86 20 147/95 99 01/16/17 04:37 28 01/16/17 04:15 Nasal Cannula 2.0 Intake and Output 01/15/17 01/15/17 01/16/17 14:59 22:59 06:59 Intake Total 700 ml 1028 ml Output Total 800 ml 1100 ml Balance -100 ml -72 ml Results Result Diagram: 01/15/17 1824 01/15/17 0520 Results 24 hrs Laboratory Tests Test 01/15/17 15:50 01/15/17 18:24 01/16/17 00:42 01/16/17 05:50 Creatine Kinase 119 116 98 83 Creatine Kinase Index 2.9 3.1 3.4 3.7 Creatinine Kinase MB (Mass) 3.48 H 3.55 H 3.33 H 3.04 H Troponin I 0.158 *H 0.169 *H 0.160 *H 0.180 *H White Blood Count 10.8 Red Blood Count 4.74 Hemoglobin 14.1 Hematocrit 43.0 Mean Corpuscular Volume 90.7 Mean Corpuscular Hemoglobin 29.7 Mean Corpuscular Hemoglobin Concent 32.8 Red Cell Distribution Width 13.9 Platelet Count 219 Mean Platelet Volume 10.8 H Neutrophils % 71.3 Lymphocytes % 17.0 Monocytes % 9.3 Eosinophils % 1.8 Basophils % 0.1 Nucleated Red Blood Cells % 0.0 Neutrophils # 7.7 H Lymphocytes # 1.8 Monocytes # 1.0 H Eosinophils # 0.2 Basophils # 0.0 Nucleated Red Blood Cells # 0.0 Prothrombin Time 12.6 12.5 Prothrombin Time Ratio 1.0 1.0 INR International Normalized Ratio 0.94 0.93 Activated Partial Thromboplast Time 29.2 50.3 H 53.2 H Medications Medications Current Medications Atorvastatin Calcium (Lipitor) 40 mg HS PO Last administered on 01/15/17 20:59 ; Admin Dose 40 MG; Start 01/14/17 at 21:00 Carvedilol (Coreg) 25 mg BID PO Last administered on 01/16/17 10:00; Admin Dose 25 MG; Start 01/14/17 at 21:00 Lisinopril (Zestril) 40 mg DAILY PO Last administered on 01/16/17 09:59; Admin Dose 40 MG; Start 01/15/17 at 09:00 Acetaminophen (Tylenol Tab) 650 mg Q6H PRN PO PAIN LEVEL 1-3 OR FEVER; Start at 19:00 Acetaminophen/ Hydrocodone Bitart ([place] (5/325)) 1 tab Q6H PRN PO MODERATE PAIN LEVEL 4-6 Last administered on 01/15/17 00:52; Admin Dose 1 TAB; Start 01/14 at 19:00 Furosemide (Lasix) 40 mg DAILY PO Last administered on 01/16/17 09:58; Admin Dose 40 MG; Start 01/15/17 at 10:00 Hydralazine HCl (Apresoline) 10 mg Q6H PRN IV ELEVATED BLOOD PRESSURE Last administered on 01/16/17 03:42; Admin Dose 10 MG; Start 01/15/17 at 21:00 CHRIS MCMAHAN MD Jan 16, 2017 11:22
[2017-01-16] MEDS ORDERED: ASPIRIN (EC) 81 MG TAB PO ONE (11:30)
[2017-01-16] MEDS ORDERED: AMLODIPINE 10 MG TAB PO ONE (11:30)
[2017-01-16 12:18] LABS: CREATININE 1.5 mg/dl (0.61-1.24); POTASSIUM 3.7 mmol/L (3.5-5.1)
--- NOTE | 2017-01-16 16:42 | RADRPT ---
Echocardiogram Report Patient Name: KACEY NUNES Gender: Male Date: 1955 Study Date: 16-Jan-2017 Batch Dumper: [facility] Location: 523 Ref. Physician: CHRIS MCMAHAN Quality: Adequate Procedures: Transthoracic echocardiogram with complete 2D, M-Mode, and doppler examination. Indications: SOB, H/O CHF with reduced EF. 2D/M Mode Doppler Measurement Value Normal Ranges Measurement Value Normal Ranges LVIDd 2D 5.0 3.5 - 5.6 cm AV Peak Juan [place] 1.5 m/sec LVIDs 2D 3.8 2.1 - 4.1 cm AV Peak PG 9.0 mmHg FS 2D 23.6 % LVOT Peak [place] 1.3 m/sec LVPWd 2D 1.5 0.6 - 1.1 cm LVOT Peak PG 7.0 mmHg IVSd 2D 1.5 0.6 - 1.1 cm MV E Peak [place] 0.7 m/sec IVS/LVPW 2D 1.0 MV A Peak Juan [place] 0.6 m/sec AoR Diam 2D 3.2 2.0 - 3.7 cm MV E/A 1.0 LA/Ao 2D 1 0 - 1 MV Decel Time 208 msec EDV 2D 128.0 cm3 MV E/A 1.0 ESV 2D 57.1 cm3 TR Peak Juan Carlos 2.4 m/sec LA Dimen 2D 4.3 2.3 - 4.0 cm TR Peak PG 23.0 mmHg RVSP 26.0 mmHg Findings Left Ventricle: Normal left ventricular systolic function. Moderate concentric left ventricular hypertrophy. Ejection fraction is visually estimated at 50 %. Abnormal Diastolic Function. Right Ventricle: Normal right ventricular size. Normal right ventricular systolic function. Left Atrium: There is mild enlargement of left atrium. Right Atrium: The right atrium is normal in size. Mitral Valve: Mitral valve leaflets appear mildly thickened. Mild mitral annular calcification. Trace mitral regurgitation. Aortic Valve: Normal appearance of the aortic valve. No significant aortic stenosis or insufficiency. Tricuspid Valve: Normal appearance of the tricuspid valve. Estimated peak PA systolic pressure 26 mmHg. There is mild tricuspid regurgitation. Pulmonic Valve: Pulmonic valve not well visualized. There is trace pulmonic regurgitation. Pericardium: Normal pericardium with no significant pericardial effusion. Aorta: Normal aortic root. IVC: Normal size and normal respiratory collapse consistent with normal right atrial pressure. Conclusions 1.Normal left ventricular systolic function. Moderate concentric left ventricular hypertrophy. Ejection fraction is visually estimated at 50 %. Abnormal Diastolic Function. 2.There is mild enlargement of left atrium. 3.Mitral valve leaflets appear mildly thickened. Mild mitral annular calcification. Trace mitral regurgitation. 4.Normal appearance of the aortic valve. No significant aortic stenosis or insufficiency. 5.Normal appearance of the tricuspid valve. Estimated peak PA systolic pressure 26 mmHg. There is mild tricuspid regurgitation. 6.Normal size and normal respiratory collapse consistent with normal right atrial pressure. Electronically Signed By: Judd Calvert 16-Jan-2017 16:41:56 -0700 Patient Name: KACEY NUNES Study Date: 16-Jan-2017 [id number]
--- NOTE | 2017-01-16 17:40 | CONS ---
Date/Time of Note Date/Time of Note DATE: 01/16/17 TIME: 17:32 Assessment/Plan Assessment/Plan Additional Assessment/Plan 1. Mildly abnormal troponin: Probably false positive troponin given the fact that patient has multiple episodes previously with slight elevation of troponin. Becoming medical therapy at this point. 2. Hypertensive heart disease 3. Smoker 4. Cocaine use 5. Acute kidney disease and chronic kidney disease. 6. Obstructive sleep apnea. I will discontinue Lasix given his acute renal failure. I will stop the heparin. Patient has not been compliant with the blood draw anyway We will continue with the Coreg twice daily. According to his caregiver he has not been taking more than once a day. I do recommend at least outpatient stress test to the patient. Patient said he will follow with [facility]. She will sign out AMA. Thank you for this referral will continue to follow along with you. Consultation Date/Type/Reason Admit Date/Time Date of Consultation: Jan 16, 2017 Reason for Consultation + trop. Hx of Present Illness This is a 61-year-old -[place] gentleman with history of cardiomyopathy cocaine use and hypertension who presented with increasing shortness of breath. Discussed with the staff old chart was extensively reviewed. Discussed with his significant other who also is his caregiver. Patient patient's one day prior to arrival he became short of breath. His troponin has been mildly elevated for which I was kindly asked to evaluate and treat. He denies any chest pain pressure to me. View of the ultrasound showed the patient has multiple admissions in 2013 2014 at this time he also had a troponin. Previous workup including stress test did not show any significant ischemia. However it showed cardiomyopathy. Patient said he follows up with [facility]. I would appear that he is not taking his medication on a regular basis. He still smokes. And he uses cocaine last use was only a few days ago. Patient also has obstructive sleep apnea and intermittent encephalopathy and hypoxemia. At this point patient has been refusing a lot of blood draws. He wants to sign out AMA. Medication was reviewed Social history as above patient smokes actively. Uses drugs including cocaine. Family history: Denies any history of coronary artery disease. Allergies no drug allergies. Review of system as above mentioned only. Patient denies all others. Social History Smoking Status: Current every day smoker Exam/Review of Systems Vital Signs Vitals Vital Signs Date Time Temp Pulse Resp B/P Pulse Ox O2 Delivery O2 Flow Rate FiO2 7/3/17 16:24 65 01/16/17 15:37 98.0 19 155/89 97 01/16/17 04:37 28 01/16/17 04:15 Nasal Cannula 2.0 Intake and Output 01/15/17 01/15/17 01/16/17 15:00 23:00 07:00 Intake Total 700 ml 1028 ml Output Total 800 ml 1100 ml Balance -100 ml -72 ml Exam General: no acute distress, obese. HEENT: NC/AT. pupils are equal. round. NECK: NO JVD. no stridor. CV: RRR. systolic murmur; no gallop or rubs. PULM: no wheezing or rhonchi. GI: SOFT, NT, ND, no rebound or guarding Extremity: trace B/L LE edema. no clubbing. neuro: awake and alert, OX3. Psych: calm and pleasant rectal: deferred : normal ECG NSR. ECHO reviewed. see my report in computer Results Result Diagram: 01/15/17 1824 01/16/17 0550 Results 24 hrs Laboratory Tests Test 01/15/17 18:24 01/16/17 00:42 01/16/17 05:50 White Blood Count 10.8 Red Blood Count 4.74 Hemoglobin 14.1 Hematocrit 43.0 Mean Corpuscular Volume 90.7 Mean Corpuscular Hemoglobin 29.7 Mean Corpuscular Hemoglobin Concent 32.8 Red Cell Distribution Width 13.9 Platelet Count 219 Mean Platelet Volume 10.8 H Neutrophils % 71.3 Lymphocytes % 17.0 Monocytes % 9.3 Eosinophils % 1.8 Basophils % 0.1 Nucleated Red Blood Cells % 0.0 Neutrophils # 7.7 H Lymphocytes # 1.8 Monocytes # 1.0 H Eosinophils # 0.2 Basophils # 0.0 Nucleated Red Blood Cells # 0.0 Prothrombin Time 12.6 12.5 Prothrombin Time Ratio 1.0 1.0 INR International Normalized Ratio 0.94 0.93 Activated Partial Thromboplast Time 29.2 50.3 H 53.2 H Creatine Kinase 116 98 83 Creatine Kinase Index 3.1 3.4 3.7 Creatinine Kinase MB (Mass) 3.55 H 3.33 H 3.04 H Troponin I 0.169 *H 0.160 *H 0.180 *H Sodium Level 141 Potassium Level 3.7 Chloride Level 100 Carbon Dioxide Level 27 Anion Gap 18 H Blood Urea Nitrogen 18 Creatinine 1.50 H Glucose Level 137 Hemoglobin A1c 6.5 H Calcium Level 9.0 Medications Medications Current Medications Atorvastatin Calcium (Lipitor) 40 mg HS PO Last administered on 01/15/17 20:59 ; Admin Dose 40 MG; Start 01/14/17 at 21:00 Carvedilol (Coreg) 25 mg BID PO Last administered on 01/16/17 10:00; Admin Dose 25 MG; Start 01/14/17 at 21:00 Lisinopril (Zestril) 40 mg DAILY PO Last administered on 01/16/17 09:59; Admin Dose 40 MG; Start 01/15/17 at 09:00 Acetaminophen (Tylenol Tab) 650 mg Q6H PRN PO PAIN LEVEL 1-3 OR FEVER; Start at 19:00 Acetaminophen/ Hydrocodone Bitart ([place] (5/325)) 1 tab Q6H PRN PO MODERATE PAIN LEVEL 4-6 Last administered on 01/15/17 00:52; Admin Dose 1 TAB; Start 01/14 at 19:00 Furosemide (Lasix) 40 mg DAILY PO Last administered on 01/16/17 09:58; Admin Dose 40 MG; Start 01/15/17 at 10:00 Amlodipine Besylate (Norvasc) 10 mg DAILY PO ; Start 01/17/17 at 09:00 Aspirin (Halfprin) 81 mg DAILY PO ; Start 01/17/17 at 09:00 MIGDALIA SERRANO MD Jan 16, 2017 17:40
[2017-01-16] MEDS: ATORVASTATIN 40 MG TAB PO SCH (20:43)
--- NOTE | 2017-01-16 20:59 | RADRPT ---
Vent Rate: 69 bpm RR Interval: 0 msec OR Interval: 158 msec QRS Duration: 148 msec QT Interval: 444 msec QTC Interval: 475 msec P-R-T [place]: 72 - -74 - 102 degrees Normal sinus rhythm Right bundle branch block Left anterior fascicular block Bifascicular block Left ventricular hypertrophy with repolarization abnormality Anterior infarct , age undetermined Abnormal ECG Electronically Signed By: Jackson Barraza [id number]
[2017-01-17] VITALS (8 sets, daily range): BP systolic 139–185; BP diastolic 85–100; PULSE 59–72; RESP 18–20
[2017-01-17 06:13] LABS: ADD SCAN DIFF NO
[2017-01-17 06:18] LABS: BASOPHILS % 0.4 % (0.0-2.0); EOSINOPHILS # 0.3 10^3/ul (0.0-0.5); EOSINOPHILS % 4.5 % (0.0-7.0); HEMOGLOBIN 15.1 g/dl (14.0-18.0); LYMPHOCYTES # 1.8 10^3/ul (0.8-2.9); LYMPHOCYTES % 24.3 % (15.0-51.0); MEAN CORPUSCULAR HEMOGLOBIN 29.7 pg (29.0-33.0); MEAN CORPUSCULAR HGB CONC 32.8 g/dl (32.0-37.0); MEAN CORPUSCULAR VOLUME 90.6 fl (82.0-101.0); MEAN PLATELET VOLUME 10.7 fl (7.4-10.4); MONOCYTES % 12.8 % (0.0-11.0); NEUTROPHIL # 4.3 10^3/ul (1.6-7.5); NEUTROPHILS % 57.5 % (39.0-77.0); PLATELET COUNT 257 10^3/UL (140-415); RED BLOOD COUNT 5.08 10^6/ul (4.70-6.10); RED CELL DISTRIBUTION WIDTH 14.1 % (11.5-14.5); WHITE BLOOD COUNT 7.5 10^3/ul (4.8-10.8)
[2017-01-17 06:53] LABS: ALBUMIN 3.8 g/dl (3.3-4.9); ALBUMIN/GLOBULIN RATIO 1.22; BILIRUBIN,INDIRECT 0.1 mg/dl (0-1.1); BILIRUBIN,TOTAL 0.1 mg/dl (0.2-1.3); CALCIUM 9.2 mg/dl (8.4-10.2); CHOL/HDL RATIO 3.3 RATIO; CREATININE 1.34 mg/dl (0.61-1.24); MAGNESIUM 1.9 mg/dl (1.7-2.5); POTASSIUM 3.9 mmol/L (3.5-5.1); TOTAL PROTEIN 6.9 g/dl (6.1-8.1)
[2017-01-17 07:09] LABS: THYROID STIMULATING HORMONE 2.06 MIU/L (0.465-4.680)
[2017-01-17 08:16] LABS: CK-MB 2.1 ng/ml (0.0-2.4); TROPONIN-I 0.168 ng/ml (0.00-0.12)
[2017-01-17] MEDS: FUROSEMIDE 40 MG TAB PO SCH (08:23)
[2017-01-17] MEDS: LISINOPRIL 20 MG TAB PO SCH (08:23)
[2017-01-17] MEDS ORDERED: AMLODIPINE 10 MG TAB PO SCH (09:00)
[2017-01-17] MEDS ORDERED: ASPIRIN (EC) 81 MG TAB PO SCH (09:00)
[2017-01-17] MEDS ORDERED: hydrALAzine 20 MG INJ IV PRN (11:30)
--- NOTE | 2017-01-17 11:31 | PDOCDIS ---
Discharge Instructions DIAGNOSIS Discharge Diagnosis Diastolic heart failure. Falsely elevated troponins. Noncompliance. CONDITION Patient Condition: Stable HOME CARE INSTRUCTIONS: Special Diet: Carb control OTHER ORDERS: Other Orders: 1. Take medications as per prescription. 2. Follow a low-cholesterol, carbohydrate controlled diet. 3. Resume activities as tolerated. 4. Avoid using recreational drugs. [facility]. [facility] KELLIE ARIZA NP Jan 17, 2017 11:31
[2017-01-17] MEDS ORDERED: ASPI-664 PO (11:34)
[2017-01-17] MEDS ORDERED: AMLO-147 PO (11:34)
[2017-01-17] MEDS ORDERED: HYDR-3671 PO (11:34)
--- NOTE | 2017-01-17 12:08 | DS ---
Date/Time of Note Date/Time of Note DATE: 01/17/17 TIME: 12:01 Discharge Summary Admission/Discharge Info Admit Date/Time Jan 14, 2017 at 19:27 Discharge Date/Time Discharge Diagnosis 1. Acute on chronic diastolic heart failure. 2. Non-ST elevation myocardial infarction. Possibly type II event. 3. Acute metabolic encephalopathy. Resolved. 4. Essential hypertension. 5. Acute on chronic kidney injury. 6. Obstructive sleep apnea. 7. Hyperlipidemia. 8. Substance abuse. 9. Medical noncompliance. 10. Prediabetes. 11. Obesity. Patient Condition: Stable Consults 1. Judd Calvert MD, Cardiology. Procedures Bilateral Lower Extremity Venous Doppler Study IMPRESSION: No sonographic evidence for deep venous thrombosis in the bilateral lower extremities. Nuclear Medicine Lung VQ Scan IMPRESSION: 1. Low probability VQ scan. Brain CT IMPRESSION: 1. No evidence of acute intracranial pathology. 2. Periventricular white matter hypodensities are nonspecific but likely reflect chronic microvascular ischemic change. 2D Echocardiogram Conclusions 1. Normal left ventricular systolic function. Moderate concentric left ventricular hypertrophy. Ejection fraction is visually estimated at 50 %. Abnormal Diastolic Function. 2. There is mild enlargement of left atrium. 3. Mitral valve leaflets appear mildly thickened. Mild mitral annular calcification. Trace mitral regurgitation. 4. Normal appearance of the aortic valve. No significant aortic stenosis or insufficiency. 5. Normal appearance of the tricuspid valve. Estimated peak PA systolic pressure 26 mmHg. There is mild tricuspid regurgitation. 6. Normal size and normal respiratory collapse consistent with normal right atrial pressure. Hx of Present Illness Chief complaint: SOB HPI This is a 61-year-old -[place] gentleman with history of cardiomyopathy cocaine use and hypertension who presented with increasing shortness of breath. One day prior to arrival he became short of breath. The patient has multiple hospitalizations in 2013 2014 at this time he also had a troponin. Previous workup including stress test did not show any significant ischemia. However, it showed cardiomyopathy. Patient usually follows up with [facility]. It appears that the patient was not taking his medication on a regular basis. He still smokes. And he uses cocaine last use was only a few days ago. Patient also has obstructive sleep apnea and intermittent encephalopathy and hypoxemia. Hospital Course The patient was very lethargic in the emergency room. The patient was maintained on noninvasive positive pressure ventilation. The patient's chest x- ray showed mild cardiomegaly and vascular congestion. The patient was also noticed to be in acute renal failure with a creatinine of 1.29. The patient's BNP was 1790. Patient was admitted to inpatient setting. Serial troponins were ordered. A 2D echocardiogram was ordered. The patient's 4th set of troponins were elevated. Hence a cardiology consult was called. The patient was maintained on heparin drip. The patient was refusing blood draws in between. Status post evaluation by cardiology, the sampler radioactive waste recommended that the patient probably has falsely elevated troponins since the patient has multiple episodes of slightly elevated troponins in the past. Cardiology recommended medical management. The patient's 2D echocardiogram showed an ejection fraction of 50% with abnormal diastolic function. The patient was maintained on Lasix for his underlying pulmonary vascular congestion which was then discontinued because of worsening renal function. The patient previously had cardiomyopathy. However, the current 2D echocardiogram showed normal left ventricular systolic function. The patient was noticed to be taking GERALDO inhibitors and beta blockers. The patient's GERALDO inhibitors will be discontinued since the patient has no evidence of any cardiomyopathy and the patient's renal function is getting worse. The patient will be continued on beta blockers for blood pressure control. The patient was also added on calcium channel blockers for blood pressure control. The patient will also be added on hydralazine for optimal blood pressure control. The patient has underlying dyslipidemia. He was maintained on statins for the same. The patient was also started on aspirin. The patient had underlying encephalopathy upon presentation to the ER. The patient underwent a brain CT scan that was negative for any acute intracranial findings. The patient's encephalopathy was concluded to be secondary to toxic metabolic from underlying drug intoxication. Patient's urine drug screen was positive for cocaine. The patient also had elevated D-dimers upon presentation to the hospital. The patient was unable to have a CT angiogram done because of worsening renal function. The patient underwent a lung VQ scan that was showing low probability for pulmonary embolus. The patient also underwent a bilateral lower extremity venous Doppler study that was negative for any underlying DVT. The patient has underlying obstructive sleep apnea. The patient was provided with nocturnal noninvasive positive pressure ventilation. The patient continues to smoke despite his underlying multiple comorbidities. The patient was advised on quitting the use of nicotine and other recreational drugs. The patient has also been noncompliant during the hospital stay with refusal of investigations multiple times. At one point of time, the patient was going to leave the hospital AGAINST MEDICAL ADVICE. As per cardiology, the patient ideally needs outpatient cardiology stress test. [facility] This patient was advised to have a [facility] test [facility]. Cardiology recommended medical management for his elevated troponins and elevated troponins are most likely falsely elevated. The patient had a stable hospital course. The patient is stable to be discharged home. Discharge Instructions 1. Take medications as per prescription. 2. Follow a low-cholesterol, carbohydrate controlled diet. 3. Resume activities as tolerated. 4. Avoid using recreational drugs. 5. [facility]. Patient verbalized understanding of discharge instructions. Case discussed with Dr. Rodriguez. Home Meds Active Scripts Aspirin* (Aspirin* EC) 81 Mg Tablet., 81 MG PO DAILY for 30 Days Prov:KELLIE ARIZA NP 01/17/17 Hydralazine Hcl* (Apresoline*) 25 Mg Tab, 25 MG PO Q8 for 30 Days, #90 TAB Prov:KELLIE ARIZA NP 01/17/17 Amlodipine Besylate* (Amlodipine Besylate*) 10 Mg Tablet, 10 MG PO DAILY for 30 Days, TAB Prov:KELLIE ARIZA NP 01/17/17 Carvedilol* (Coreg*) 25 Mg Tab, 25 MG PO BID for 28 Days, BOTTLE Prov:RAJEEV BARFIELD MD 03/13/15 Reported Medications Atorvastatin* (Atorvastatin*) 40 Mg Tablet, 40 MG PO HS, TAB 07/14/14 Discontinued Reported Medications Lisinopril* (Lisinopril*) 40 Mg Tablet, 40 MG PO DAILY, TAB 07/14/14 Spironolactone* (Aldactone*) 25 Mg Tablet, 25 MG PO DAILY, TAB 07/14/14 Omeprazole* (Omeprazole*) 20 Mg Capsule., 20 MG PO DAILY, CAP 07/14/14 Aspirin* (Aspirin* EC) 81 Mg Tablet., 81 MG PO DAILY, TAB 06/04/14 Discontinued Scripts Acetaminophen* (Tylenol*) 325 Mg Tablet, 1 TAB PO Q6 Y for PAIN AND OR ELEVATED TEMP, #20 TAB Prov:MELISSA ROSENBERG DO 12/18/16 Naproxen* (Naprosyn*) 500 Mg Tablet, 500 MG PO BID Y for PAIN AND/OR INFLAMMATION, #14 TAB Prov:OLIVIA JOEL NP 05/29/15 Furosemide (Lasix) 40 Mg Tab, 40 MG PO DAILY for 28 Days, TAB Prov:RAJEEV BARFIELD MD 03/13/15 Nifedipine* (Procardia XL*) 30 Mg Tabsr, 30 MG PO DAILY for 28 Days, BOTTLE Prov:RAJEEV BARFIELD MD 03/13/15 Hydralazine Hcl* (Hydralazine Hcl*) 25 Mg Tab, 75 MG PO Q6 for 30 Days, TAB Prov:RAJEEV BARFIELD MD 03/13/15 Clonidine Hcl (CATAPRES-TTS 3 PATCH) 1 Patch Patch, 1 PATCH TRANSDERM We@22 for 28 Days, PATCH Prov:RAJEEV BARFIELD MD 03/13/15 Follow-up Plan [facility]. Primary Care Provider Not On Staff Doctor Time spent on discharge: > 30 minutes Pending Labs Laboratory Tests Test 01/17/17 05:47 White Blood Count 7.510^3/ul (4.8-10.8) Red Blood Count 5.0810^6/ul (4.70-6.10) Hemoglobin 15.1g/dl (14.0-18.0) Hematocrit 46.0% (42.0-52.0) Mean Corpuscular Volume 90.6fl (82.0-101.0) Mean Corpuscular Hemoglobin 29.7pg (29.0-33.0) Mean Corpuscular Hemoglobin Concent 32.8g/dl (32.0-37.0) Red Cell Distribution Width 14.1% (11.5-14.5) Platelet Count 67663^3/UL (140-415) Mean Platelet Volume 10.7fl (7.4-10.4) Neutrophils % 57.5% (39.0-77.0) Lymphocytes % 24.3% (15.0-51.0) Monocytes % 12.8% (0.0-11.0) Eosinophils % 4.5% (0.0-7.0) Basophils % 0.4% (0.0-2.0) Nucleated Red Blood Cells % 0.0/100WBC (0.0-0.0) Neutrophils # 4.310^3/ul (1.6-7.5) Lymphocytes # 1.810^3/ul (0.8-2.9) Monocytes # 1.010^3/ul (0.3-0.9) Eosinophils # 0.310^3/ul (0.0-0.5) Basophils # 0.010^3/ul (0.0-0.1) Nucleated Red Blood Cells # 0.010^3/ul (0.0-0.0) Sodium Level 142mmol/L (135-144) Potassium Level 3.9mmol/L (3.5-5.1) Chloride Level 101mmol/L (97-110) Carbon Dioxide Level 27mmol/L (21-31) Anion Gap 18 (8-16) Blood Urea Nitrogen 17mg/dl (7-20) Creatinine 1.34mg/dl (0.61-1.24) Glucose Level 105mg/dl (70-220) Calcium Level 9.2mg/dl (8.4-10.2) Magnesium Level 1.9mg/dl (1.7-2.5) Total Bilirubin 0.1mg/dl (0.2-1.3) Direct Bilirubin 0.00mg/dl (0.00-0.20) Indirect Bilirubin 0.1mg/dl (0-1.1) Aspartate Amino Transf (AST/SGOT) 23IU/L (15-46) Alanine Aminotransferase (ALT/SGPT) 25IU/L (13-69) Alkaline Phosphatase 109IU/L (42-121) Creatine Kinase 67IU/L (23-200) Creatine Kinase Index 3.1 Creatinine Kinase MB (Mass) 2.10ng/ml (0.0-2.4) Troponin I 0.168ng/ml (0.00-0.12) B-Type Natriuretic Peptide 577PG/ML (0-125) Total Protein 6.9g/dl (6.1-8.1) Albumin 3.8g/dl (3.3-4.9) Globulin 3.10g/dl (1.3-3.2) Albumin/Globulin Ratio 1.22 Triglycerides Level 251mg/dl (0-149) Cholesterol Level 149mg/dl (100-200) LDL Cholesterol, Calculated 54mg/dl HDL Cholesterol 45mg/dl (30-78) Cholesterol/HDL Ratio 3.3RATIO Thyroid Stimulating Hormone (TSH) 2.060MIU/L (0.465-4.680) Free Thyroxine 0.90ng/dl (0.64-1.79) KELLIE ARIZA NP Jan 17, 2017 12:08 KELLIE ARIZA NP Jan 17, 2017 12:08
== END 2017-01-17 12:55 | disposition home or self-care (01) | DRG 280 ==
LOC: E/R 15:09 → TEL 19:27
PROVIDERS: ADMIT Internal Medicine; ATTEND Internal Medicine
DX: I13.0 Hypertensive heart and chronic kidney disease with heart failure and stage 1 through stage 4 chronic kidney disease, or unspecified chronic kidney disease (principal); I21.4 Non-ST elevation (NSTEMI) myocardial infarction; G93.41 Metabolic encephalopathy; N17.9 Acute kidney failure, unspecified; I50.33 Acute on chronic diastolic (congestive) heart failure; N18.9 Chronic kidney disease, unspecified; G47.33 Obstructive sleep apnea (adult) (pediatric); E78.5 Hyperlipidemia, unspecified; E66.9 Obesity, unspecified; Z68.30 Body mass index [BMI] 30.0-30.9, adult; F17.200 Nicotine dependence, unspecified, uncomplicated; F14.90 Cocaine use, unspecified, uncomplicated; I42.9 Cardiomyopathy, unspecified; R09.02 Hypoxemia; Z91.19 Patient's noncompliance with other medical treatment and regimen; R73.03 Prediabetes
CPT/HCPCS: 36600; 70450; 71010; 78582; 80048; 80053; 80061; 80306; 80307; 82550; 82553; 82803; 83036; 83735; 83880; 84100; 84439; 84443; 84484; 85025; 85378; 85610; 85730; 93005; 93306; 93970; 94660; 94664; 96374; 96375; 96376; A9540; J0360; J1644; J1940; J2930

== ENCOUNTER 2017-05-27 20:22 | Emergency (ER) | payer OTHER ==
[~2017-05-27] VITALS: Ht 172.7 cm; Wt 98.2 kg
[~2017-05-27 20:22] MED LIST changes: -ACET325T33 PO; +AMLO-147 PO; -FURO40TA4 PO; -LISI40TA9 PO; -NAPR-260 PO; -NIFE30TA66 PO; -OMEP20CA16 PO; -SPIR25TA PO; -[UNRECOGNIZED DRUG - CODE] TRANSDERM
[2017-05-27 20:30] VITALS: Ht 172.7 cm; Wt 98.2 kg
[2017-05-27] MEDS ORDERED: ASPIRIN 325 MG TAB PO STA (20:48)
[2017-05-27 21:18] LABS: BASOPHILS % 0.1 % (0.0-2.0); EOSINOPHILS # 0.3 10^3/ul (0.0-0.5); HEMATOCRIT 37.1 % (42.0-52.0); HEMOGLOBIN 12.1 g/dl (14.0-18.0); LYMPHOCYTES # 1.2 10^3/ul (0.8-2.9); LYMPHOCYTES % 12.6 % (15.0-51.0); MEAN CORPUSCULAR HEMOGLOBIN 29.6 pg (29.0-33.0); MEAN CORPUSCULAR HGB CONC 32.6 g/dl (32.0-37.0); MEAN CORPUSCULAR VOLUME 90.7 fl (82.0-101.0); MEAN PLATELET VOLUME 9.9 fl (7.4-10.4); MONOCYTE # 0.8 10^3/ul (0.3-0.9); MONOCYTES % 9.2 % (0.0-11.0); NEUTROPHIL # 6.8 10^3/ul (1.6-7.5); NEUTROPHILS % 74.6 % (39.0-77.0); PLATELET COUNT 330 10^3/UL (140-415); RED BLOOD COUNT 4.09 10^6/ul (4.70-6.10); RED CELL DISTRIBUTION WIDTH 14.6 % (11.5-14.5); WHITE BLOOD COUNT 9.2 10^3/ul (4.8-10.8)
[2017-05-27 21:35] LABS: CALCIUM 8.4 mg/dl (8.4-10.2); CREATININE 1.45 mg/dl (0.61-1.24)
[2017-05-27 21:47] LABS: TROPONIN-I 0.106 ng/ml (0.00-0.12)
[2017-05-27] MEDS ORDERED: LABETALOL HCL 20MG INJ IV ONE (22:30)
[2017-05-27] MEDS ORDERED: FUROSEMIDE 40 MG INJ IV ONE (23:00)
[2017-05-27] MEDS ORDERED: FURO-109 PO (23:18)
[2017-05-27 23:26] VITALS: BP 170/62; PULSE 69; RESP 22
--- NOTE | 2017-05-27 23:30 | ERD ---
ER Documentation Chief Complaint Chief Complaint PT IN C/O "SORE THROAT AND SHORTNESS OF BREATH WITH EXERTION X 2 WEEKS. HPI This 61-year-old male comes in complaining of shortness of breath on exertion 2 weeks getting the last few days. Has history of congestive heart therapy was recently diagnosed with pneumonia and hospitalized in [place]. He has had no fevers or chills and has completed his course of antibiotics. No nausea or vomiting ROS All systems reviewed and are negative except as per history of present illness. Medications Home Meds Active Scripts Furosemide* (Lasix*) 40 Mg Tablet, 40 MG PO DAILY, #20 TAB 1 Refill Prov:JERAMY CHILD DO 05/27/17 Aspirin* (Aspirin* EC) 81 Mg Tablet.dr, 81 MG PO DAILY for 30 Days Prov:KELLIE ARIZA NP 01/17/17 Hydralazine Hcl* (Apresoline*) 25 Mg Tab, 25 MG PO Q8 for 30 Days, #90 TAB Prov:KELLIE ARIZA NP 01/17/17 Amlodipine Besylate* (Amlodipine Besylate*) 10 Mg Tablet, 10 MG PO DAILY for 30 Days, TAB Prov:KELLIE ARIZA NP 01/17/17 Carvedilol* (Coreg*) 25 Mg Tab, 25 MG PO BID for 28 Days, BOTTLE Prov:RAJEEV BARFIELD MD 03/13/15 Reported Medications Atorvastatin* (Atorvastatin*) 40 Mg Tablet, 40 MG PO HS, TAB 07/14/14 Allergies Allergies: Coded Allergies: No Known Allergy (Unverified , 01/14/17) PMhx/Soc History of Surgery: No Anesthesia Reaction: No Hx Neurological Disorder: No Hx Respiratory Disorders: Yes (SLEEP APNEA) Hx Cardiac Disorders: Yes (CHF,HTN,DYSLIPIDEMIA) Hx Psychiatric Problems: No Hx Miscellaneous Medical Probl: No Hx Alcohol Use: No Hx Substance Use: Yes (COCAINE SOMETIMES) Hx Tobacco Use: Yes Smoking Status: Former smoker Physical Exam Vitals Vital Signs Date Time Temp Pulse Resp B/P Pulse Ox O2 Delivery O2 Flow Rate FiO2 05/27/17 20:40 Nasal Cannula 2 05/27/17 20:30 98.2 84 22 201/111 92 Physical Exam Const: [] Moderate distress Head: Atraumatic Eyes: Normal Conjunctiva ENT: Normal External Ears, Nose and Mouth. Neck: Full range of motion..~ No meningismus. Resp: Markedly decreased bibasilar breath sounds with mild tachypnea and increased work of breathing Cardio: Regular rate and rhythm, no murmurs Abd: Soft, non tender, non distended. Normal bowel sounds Skin: No petechiae or rashes Back: No midline or flank tenderness Ext: No cyanosis, or edema Neur: Awake and alert oriented 3, no focal deficits Psych: Normal Mood and Affect Result Diagram: 05/27/17 2100 05/27/17 2100 Results 24 hrs Laboratory Tests Test 05/27/17 21:00 White Blood Count 9.210^3/ul Red Blood Count 4.0910^6/ul Hemoglobin 12.1g/dl Hematocrit 37.1% Mean Corpuscular Volume 90.7fl Mean Corpuscular Hemoglobin 29.6pg Mean Corpuscular Hemoglobin Concent 32.6g/dl Red Cell Distribution Width 14.6% Platelet Count 16627^3/UL Mean Platelet Volume 9.9fl Neutrophils % 74.6% Lymphocytes % 12.6% Monocytes % 9.2% Eosinophils % 3.0% Basophils % 0.1% Nucleated Red Blood Cells % 0.0/100WBC Neutrophils # 6.810^3/ul Lymphocytes # 1.210^3/ul Monocytes # 0.810^3/ul Eosinophils # 0.310^3/ul Basophils # 0.010^3/ul Nucleated Red Blood Cells # 0.010^3/ul Sodium Level 142mmol/L Potassium Level 4.0mmol/L Chloride Level 106mmol/L Carbon Dioxide Level 30mmol/L Anion Gap 10 Blood Urea Nitrogen 21mg/dl Creatinine 1.45mg/dl Glucose Level 127mg/dl Calcium Level 8.4mg/dl Troponin I 0.106ng/ml B-Type Natriuretic Peptide 5570PG/ML Current Medications Medications (Trade) Dose Ordered Sig/Gisel Route PRN Reason Start Time Stop Time Status Last Admin Dose Admin Aspirin (Aspirin) 325 mg ONCE STAT PO 05/27/17 20:48 05/27/17 20:49 DC 05/27/17 21:38 Labetalol HCl (Labetalol) 20 mg ONCE ONCE IV 05/27/17 22:30 05/27/17 22:31 DC 05/27/17 22:17 Furosemide (Lasix) 40 mg ONCE ONCE IV 05/27/17 23:00 05/27/17 23:01 DC 05/27/17 23:00 Procedures/MDM Acute congestive heart failure with hypertensive emergency. Patient was given aspirin and labetalol for his severe hypertension. His help lower his blood pressure somewhat. He was also given 40 mg of Lasix. Is placed on oxygen. The patient however when told he would be admitted so that he did not want to be admitted even though he respects the hospital and everybody in it he does not want to stay in the hospital because he was just in the hospital in [place] and just cannot do it anymore. He wanted to sign out AGAINST MEDICAL ADVICE because he has an appoint with his doctor on Monday that he will keep. Discharging him with Lasix anyways he says he does not have any Lasix at home. He does take Coreg and lisinopril for blood pressure did not take his evening dose of Coreg. Given him strict return precautions to the ER and said he would come back while I am still here tonight I would expedite his admission. EKG interpretation: Normal sinus rhythm, left axis deviation, slightly widened QRS, no ST or T-wave changes concerning for acute ischemia. Single very slight T-wave inversion in V6 only. Date monitor interpretation: Normal sinus rhythm without arrhythmia Chest x-ray interpretation: Engorgement of pulmonary vasculature with hazy opacities in right lobe possibly represent resolving pneumonia versus pulmonary edema, no pneumothorax, no fractures Critical care time greater than 35 minutes: This includes treatment of respiratory distress with congestive heart failure with concomitant hypertensive emergency, action of unstable vital signs including severe hypertension and tachypnea. Use of labetalol as a back to his medication to lower blood pressure, multiple space bedside to reassess status, lengthy discussion with patient regarding staying in the emergency room, review of chart. This does not include any billable procedures. Departure Diagnosis: Primary Impression: CHF (congestive heart failure) Additional Impressions: Renal insufficiency Normocytic anemia Condition: Stable Patient Instructions: When Your Child Has Congestive Heart Failure (CHF) Additional Instructions: Call your primary care doctor TOMORROW for an appointment during the next 2-3 days.See the doctor sooner or return here if your condition worsens before your appointment time. JERAMY CHILD DO May 27, 2017 23:30
--- NOTE | 2017-05-27 23:39 | RADRPT ---
PROCEDURE: CHEST - 1 VIEW CLINICAL INDICATION: 61-year-old male with shortness of breath. TECHNIQUE: A single frontal AP portable upright view of the chest was performed. The images were reviewed on a PACS workstation. COMPARISON: None. FINDINGS: The cardiomediastinal silhouette is moderately enlarged. An anastomotic korina are seen within the right lung apex. There is moderate pulmonary vascular congestion. There is no evidence for focal co nsolidation. There is no evidence for pneumothorax. The osseous structures are intact. IMPRESSION: 1. Cardiomegaly. 2. Moderate pulmonary vascular congestion. 3. Prior right apical lung surgery. .Nish Martins MD, MD Date Time Electronically viewed and signed by .Nish Martins MD, on 05/27/2017 23:39 .Roland/
== END 2017-05-27 23:26 | disposition home or self-care (01) ==
LOC: E/R 20:22
DX: I50.9 Heart failure, unspecified (principal); N28.9 Disorder of kidney and ureter, unspecified; D64.9 Anemia, unspecified; I10 Essential (primary) hypertension; Z79.82 Long term (current) use of aspirin; Z87.891 Personal history of nicotine dependence
CPT/HCPCS: 36415; 71010; 80048; 83880; 84484; 85025; 93005; 96374; 96375; J1940; Z7502; Z7610

== ENCOUNTER 2017-07-30 05:46 | Inpatient (IN) | END 2017-08-02 08:48 | disposition left against medical advice (07) | DRG 280 ==

== ENCOUNTER 2017-11-22 04:30 | Inpatient (IN) | END 2017-11-24 06:17 | disposition left against medical advice (07) | DRG 280 ==

== ENCOUNTER 2017-11-27 21:04 | Inpatient (IN) | END 2017-12-15 20:58 | disposition EXP | DRG 207 ==